=== PATIENT | female | born 1945 | race Caucasian/White ===

== ENCOUNTER → 2017-04-05 | Outpatient (CLI) | payer OTHER ==
[~2017-04-05] MED LIST: ESTR0.3T PO
--- NOTE | 2017-04-05 12:16 | DIAGNOSTIC IMAGING REPORT ---
ADDENDUM Addendum: Upon review of the CT portion of the study, with the descending thoracic aorta, there are calcifications within the aorta indicative of either calcification within aortic mural thrombus, or calcification within displaced intima, which would indicate an aortic dissection. This finding remains unchanged from the outside [facility] CT scan. Electronically signed by: Kyle Holley M.D. 04/05/2017 2:08 PM Dictated Date/Time: 04/05/2017 2:06 PM ORIGINAL REPORT PET/CT SKULL-THIGH CLINICAL HISTORY: PULMONARY NODULE COMPARISON STUDY: Outside CT scan dated 03/16/2017 FINDINGS: The patient was injected with 14.3 mCi F-18 labeled FDG. Findings standard induction phase, PET/CT scanning was performed from the skull base the upper thigh region. Uptake within neck is felt to be physiologic. Uptake within the thorax is felt to be physiologic. There is no pathologic mediastinal, hilar, or axillary alfie activity. The right apical parenchymal density is not FDG avid, and has an appearance suggestive of pleural-parenchymal apical scarring. There is no pathologic hepatic splenic or adrenal gland activity. There is no pathologic alfie activity within the abdomen or pelvis. There are no areas of skeletal activity viewed as suspicious for metastasis. r there is aneurysmal dilatation of the descending thoracic aorta which measures 46 mm in diameter. There are coronary artery calcifications present. There is emphysema. There is extensive sigmoid diverticulosis. IMPRESSION: There are no areas of abnormal FDG uptake to indicate neoplasm. Electronically signed by: Kyle Holley M.D. 04/05/2017 12:15 PM Dictated Date/Time: 04/05/2017 11:11 AM
== END | disposition home or self-care (01) ==
LOC: C.PET 08:37
PROVIDERS: ATTEND Internal Medicine Pulmonary Disease
DX: R91.1 Solitary pulmonary nodule (principal)